=== PATIENT | female | born 1945 | race Two or more races ===

== ENCOUNTER 2020-07-02 11:54 | Outpatient (CLI) | payer OTHER | END 2020-07-02 12:15 | disposition home or self-care (01) | LOC: RAD 11:54 | PROVIDERS: ATTEND Orthopaedic Surgery | DX: M25.561 Pain in right knee (principal); M25.562 Pain in left knee; R07.89 Other chest pain ==

== ENCOUNTER 2020-07-08 09:36 | Outpatient (CLI) | payer OTHER | END 2020-07-08 12:48 | disposition home or self-care (01) | LOC: SONOGRAMA 09:36 → MAMO-SONO 09:45 → SONOGRAMA 12:48 | DX: R10.13 Epigastric pain (principal); K29.00 Acute gastritis without bleeding ==

== ENCOUNTER 2021-03-24 13:00 | Outpatient (CLI) | payer OTHER | END 2021-03-24 13:10 | disposition home or self-care (01) | LOC: MRI 13:00 | PROVIDERS: ATTEND Orthopaedic Surgery | DX: M17.0 Bilateral primary osteoarthritis of knee (principal) | CPT/HCPCS: 73721 ==